=== PATIENT | female | born 1930 | race Caucasian/White ===

== ENCOUNTER → 2016-10-03 | Outpatient (CLI) | payer MEDICARE, BC ==
[~2016-10-03] MED LIST: ACETAMINOPHEN PO; ALENDRONATE SOD70 M1 PO; CALCIUM + D 6001 TAB PO; FUROSEMIDE20 MG PO; GABAPENTIN300 MG PO; HYDROCODONE PO; KLOR-CON 1010 MEQ PO; LASIX 40MG TABL40 MG PO; LEVOTHYROXIN0.112 MG PO; LOTENSIN 1010 MG/TAB PO; LOTENSIN10 MG PO; MULTI VITAMINS1 TAB PO; SYNTHROID0.112 MG/T PO
== END ==
LOC: COL.RAD 16:13
DX: R60.0 Localized edema (principal)

== ENCOUNTER → 2018-01-14 | Outpatient (CLI) | payer MEDICARE, BC | LOC: COL.VAS 15:15 | DX: M79.89 Other specified soft tissue disorders (principal); M79.604 Pain in right leg; R60.0 Localized edema ==